=== PATIENT | male | born 1950 | race Caucasian/White ===

== ENCOUNTER 2016-08-10 15:58 | Observation (INO) | payer OTHER ==
[2016-08-10 15:18] LABS: BASO % 0.2 % (0-2); EOS % 0.1 % (0-7); HCT-HEMATOCRIT 37.4 % (36.0-53.5); HGB-HEMOGLOBIN 13.5 gm/dl (13.5-17.0); IMMATURE GRANULOCYTES ABSOLUTE 0.02 tho/cmm (0-0.03); IMMATURE GRANULOCYTES PERCENT 0.2 % (0-0.3); LYMPH % 11.3 % (20-45); MCH (MEAN CORPUSCULAR HGB) 32.2 pg (28.0-32.0); MCHC MEAN CORPUSCULAR HGB CONC 36.1 % (32.0-36.0); MCV (MEAN CELL VOLUME) 89.3 fl (82.0-96.0); MEAN PLATELET VOLUME 9.4 cmc (9.4-12.4); MONO % 8.8 % (0-12); MONOCYTE ABSOLUTE COUNT 0.8 tho/cmm (0.0-1.2); NEUTROPHIL ABSOLUTE COUNT 7.3 tho/cmm (1.6-8.0); NEUTROPHIL-AUTOMATED 7.3 tho/cmm (1.6-8.0); NEUTROPHILS % 79.4 % (40-80); PLATELET COUNT 117 tho/cmm (150-450); RED BLOOD COUNT 4.19 mil/cmm (4.40-5.70); RED CELL DISTRIBUTION WIDTH 13.3 % (12.4-16.4); WHITE BLOOD COUNT 9.2 tho/cmm (4.0-10.0)
[2016-08-10 15:21] LABS: INR 1.2 INR (0.9-1.1); PROTHROMBIN TIME 13.9 SECONDS (9.0-13.6)
[2016-08-10 15:40] LABS: ALB/GLOB RATIO 1.1 (0.8-2.0); ALBUMIN 3.7 g/dl (3.5-5.0); ALKALINE PHOSPHATASE 51 U/L (33-138); ALT/SGPT 24 U/L (12-78); ANION GAP 13 mmol/L (0-20); AST/SGOT 19 U/L (10-40); BILIRUBIN,TOTAL 0.9 mg/dl (0.0-1.5); BLOOD UREA NITROGEN 16 mg/dl (6-24); CALCIUM 8.4 mg/dl (8.5-10.5); CARBON DIOXIDE-VENOUS 22 mmol/L (22-32); CHLORIDE 102 mmol/l (96-110); CREATININE 1.04 mg/dl (0.60-1.30); GLUCOSE 151 mg/dL (70-110); POTASSIUM 4.1 mmol/L (3.7-5.1); SODIUM 133 mmol/L (135-145); eGFR VALUE FOR BLACK 87 mL/Min
[2016-08-10 15:42] LABS: PROCALCITONIN <0.05 ng/ml (0.05-0.09)
[~2016-08-10 15:58] MED LIST: ALTACE10 M1 PO; ALTACE10 MG; ASPIR 8181 MG; ASPIRIN EC81 MG PO; ASPIRIN325 MG; ASPIRIN325 MG PO; ATENOLOL100 MG; CEPHALEXIN500 M; CLARITIN10 M6 PO; COZAAR100 M1 PO; FISH OIL 1,0001 CA1; FISH OIL 1,0001 EAC6 PO; GEMFIBROZIL600 MG; GUAIFENESIN400 M1 PO; MULTIVITAMIN1 TAB; MULTIVITAMINS1 EAC6 PO; NORVASC5 M2 PO; RAMIPRIL10 MG PO; SMZ-TMP DS 800-1 TAB; TENORMIN100 M1 PO; ZESTRIL40 M2 PO
[2016-08-11 04:28] LABS: ANION GAP 11 mmol/L (0-20); BLOOD UREA NITROGEN 12 mg/dl (6-24); CALCIUM 8.2 mg/dl (8.5-10.5); CARBON DIOXIDE-VENOUS 28 mmol/L (22-32); CHLORIDE 103 mmol/l (96-110); CREATININE 1.04 mg/dl (0.60-1.30); GLUCOSE 145 mg/dL (70-110); POTASSIUM 4.1 mmol/L (3.7-5.1); SODIUM 138 mmol/L (135-145); eGFR VALUE FOR BLACK 87 mL/Min
[2016-08-11 04:39] LABS: BASO % 0.1 % (0-2); EOS % 0.5 % (0-7); HCT-HEMATOCRIT 35.7 % (36.0-53.5); HGB-HEMOGLOBIN 12.6 gm/dl (13.5-17.0); IMMATURE GRANULOCYTES ABSOLUTE 0.02 tho/cmm (0-0.03); IMMATURE GRANULOCYTES PERCENT 0.2 % (0-0.3); LYMPH % 14.1 % (20-45); LYMPH ABSOLUTE COUNT 1.2 tho/cmm (0.8-4.5); MCH (MEAN CORPUSCULAR HGB) 31.8 pg (28.0-32.0); MCHC MEAN CORPUSCULAR HGB CONC 35.3 % (32.0-36.0); MCV (MEAN CELL VOLUME) 90.2 fl (82.0-96.0); MEAN PLATELET VOLUME 9.5 cmc (9.4-12.4); MONOCYTE ABSOLUTE COUNT 0.9 tho/cmm (0.0-1.2); NEUTROPHIL ABSOLUTE COUNT 6.2 tho/cmm (1.6-8.0); NEUTROPHIL-AUTOMATED 6.2 tho/cmm (1.6-8.0); NEUTROPHILS % 74.1 % (40-80); PLATELET COUNT 110 tho/cmm (150-450); RED BLOOD COUNT 3.96 mil/cmm (4.40-5.70); RED CELL DISTRIBUTION WIDTH 13.4 % (12.4-16.4); WHITE BLOOD COUNT 8.3 tho/cmm (4.0-10.0)
[2016-08-11] MEDS ORDERED: BACTRIM DS TAB1 EAC2 PO (11:52)
== END 2016-08-11 12:25 ==
LOC: EDMED 15:58 → EMR2 17:53 → CAR1 17:54
PROVIDERS: Emergency Medicine; ADMIT Family Medicine
DX: R55 Syncope and collapse (principal); L03.317 Cellulitis of buttock; I07.1 Rheumatic tricuspid insufficiency; I77.819 Aortic ectasia, unspecified site; I10 Essential (primary) hypertension; D69.6 Thrombocytopenia, unspecified; D64.9 Anemia, unspecified; A49.02 Methicillin resistant Staphylococcus aureus infection, unspecified site; B02.9 Zoster without complications; Z88.0 Allergy status to penicillin; Z91.040 Latex allergy status; Z79.899 Other long term (current) drug therapy; Z79.82 Long term (current) use of aspirin
CPT/HCPCS: G0378; G8978-GP-CH; G8979-GP-CH; G8980-GP-CH; J2543; J3370; J7030